=== PATIENT | male | born 1940 | race Caucasian/White ===

== ENCOUNTER 2016-09-01 19:34 | Emergency (ER) | payer MEDICARE, OTHER ==
[~2016-09-01 19:34] MED LIST: AMB10 PO; ASAEC PO; BYSTOLIC10 MG PO; BYSTOLIC5 MG PO; C1 PO; CENTRUM TAB1 TAB PO; COUMADIN3 MG PO; COUMADIN6 MG PO; DEMA10T PO; DILT-XR120 MG PO; FISH-EPA1000 MG PO; GLUCOPHAGE1000 MG PO; GLUCPH PO; HALF81 PO; K500 PO; L20 PO; LEXAPRO5 MG PO; LORTAB 5 PO; MELA3 PO; MELATONIN OTC PO; MEVACOR40 MG PO; MOBIC7.5 PO; MULTIVITAMI1 PO; NORCO1 TA1 PO; PCET PO; PRIN20 PO; PRIN5 PO; VITAMIN D1000 UNI1 PO; VITAMIN D31000 UNIT PO; Z100 PO; Z300 PO; ZESTRIL5 MG PO; ZOFRAN4 PO
[2016-09-01 20:07] LABS: BASOPHILS 0.4 %; BASOPHILS ABSOLUTE 0.04 10/3/uL (0.0-0.16); EOSINOPHILS 3.6 %; EOSINOPHILS ABSOLUTE 0.39 10/3/uL (0.0-0.53); HEMOGLOBIN 12.9 g/dL (13.6-17.8); IMMATURE GRANULOCYTES 0.1 %; IMMATURE GRANULOCYTES ABSOLUTE 0.01 10/3/uL (0.0-0.11); LYMPHOCYTES ABSOLUTE 2.08 10/3/uL (0.67-4.30); MEAN CORPUS HGB CONC 32.9 g/dL (32.0-36.0); MEAN CORPUSCULAR HEMOGLOB 25.9 pg (26.0-34.0); MEAN CORPUSCULAR VOLUME 78.7 fL (80-100); MEAN PLATELET VOLUME 10.2 fL (9.2-13.0); MONOCYTES ABSOLUTE 0.99 10/3/uL (0.21-1.20); NEUTROPHILS 67.9 %; NEUTROPHILS ABSOLUTE 7.43 10/3/uL (2.02-8.40); RBC DISTRIBUTION WIDTH 14.4 % (12.0-16.0); WHITE BLOOD CELLS 10.9 10/3/uL (4.5-10.5)
[2016-09-01 20:08] LABS: HEMATOCRIT 39.2 % (40.0-51.0); MANUAL DIFF NO %; PLATELET COUNT 192 10/3/uL (150-400); RED CELL COUNT 4.98 10/6/uL (4.7-6.1)
[2016-09-01 20:15] LABS: INTERNATIONAL NORMAL RATI 2.4 UNITS (-)
[2016-09-01 20:16] LABS: PARTIAL THROMBO TIME 34.4 SEC (22.5-37.2); PROTIME (NOT ORD) 26.2 SEC (12.0-14.5)
[2016-09-01 20:25] LABS: BUN (BLOOD UREA NITROGEN) 26 MG/DL (6-23); CALCIUM, SERUM 8.8 MG/DL (8.5-10.4); CHEST PAIN PROFILE TAT 0 Hrs 24 Mins; CHLORIDE, SERUM 105 MMOL/L (96-112); CO2 (CARBON DIOXIDE) 26 MMOL/L (24-34); CREATININE 1.43 MG/DL (0.70-1.30); GFR AFRICAN AMERICAN 55 ML/MIN (>=60); GFR NON AFRICAN AMERICAN 48 ML/MIN (>=60); GLUCOSE, SERUM 97 MG/DL (60-99); POTASSIUM, SERUM 4.3 MMOL/L (3.5-5.3); SODIUM, SERUM 139 MMOL/L (135-148); TROPONIN I 0.02 NG/ML (<0.05)
== END 2016-09-02 01:42 | disposition home or self-care (01) ==
LOC: ER 19:34
PROVIDERS: Hospitalist
DX: I11.0 Hypertensive heart disease with heart failure (principal); I50.9 Heart failure, unspecified; R53.81 Other malaise; I25.2 Old myocardial infarction; E11.9 Type 2 diabetes mellitus without complications; I48.91 Unspecified atrial fibrillation; Z95.0 Presence of cardiac pacemaker; Z95.5 Presence of coronary angioplasty implant and graft; Z88.8 Allergy status to other drugs, medicaments and biological substances; Z91.09 Other allergy status, other than to drugs and biological substances; Z79.82 Long term (current) use of aspirin; Z79.01 Long term (current) use of anticoagulants; Z79.84 Long term (current) use of oral hypoglycemic drugs
CPT/HCPCS: 71010; 80048; 83735; 83880; 84484; 85025; 85610; 85730; 93005; 99285